=== PATIENT | female | born 2005 | race Caucasian/White ===

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

== ENCOUNTER 2023-01-28 14:30 | Emergency (ER) | payer MEDICAID ==
[~2023-01-28] VITALS: Ht 162.6 cm; Wt 53.0 kg
[2023-01-28 14:33] VITALS: BP 116/60; PULSE 105; TEMP 98; O2SAT 100
[2023-01-28] MEDS ORDERED: dexamethasone sod phosphate 10mg/ml inj PO STA (14:50)
[2023-01-28 15:08] VITALS: RESP 16
[2023-01-28 15:20] LABS: STREP A SCREEN NEGATIVE (Neg)
[2023-01-28] MEDS ORDERED: LIDO20SO16 PO (15:23)
[2023-01-28] MEDS ORDERED: NAPR-56 PO (15:23)
--- NOTE | 2023-01-28 17:20 | NUR ---
I AGREE WITH THE ASSESSMENT PER Jeff HINOJOSA LVN.
--- NOTE | 2023-02-01 11:12 | NUR ---
Amoxicillin 500mg 2 tabs (1000mg) PO BID X10 days called into [facility] on [address]. [phone] Dove.
== END 2023-01-28 15:20 | disposition home or self-care (01) ==
LOC: ER 14:30
DX: J02.9 Acute pharyngitis, unspecified (principal)
CPT/HCPCS: 87077; 87081; 87880; 99283; J1100